=== PATIENT | male | born 1935 | race Two or more races ===

== ENCOUNTER 2019-07-14 13:00 | Outpatient (CLI) | payer MEDICARE, MEDICAID ==
[~2019-07-14 13:00] MED LIST: AMLODIPINE BESY10 MG ORAL; ASPIRIN EC81 MG ORAL; AVODART0.5 MG ORAL; ICAPS TABLET1 EACH PO; LEVOTHYROXINE25 MCG ORAL; LOSARTAN POTAS100 MG ORAL; MELOXICAM7.5 MG PO; MUCUS RELIEF400 MG PO; NEXIUM40 MG ORAL; TAMSULOSIN HCL0.4 MG ORAL; VITAMIN D1000 UNI1 ORAL
[2019-07-14 15:48] VITALS: BP 131/70
--- NOTE | 2019-07-14 19:15 | Consultation ---
DATE OF CONSULTATION: 07/14/2019 CONSULTING PHYSICIAN: Gadiel Ponce M.D. CHIEF COMPLAINT: The patient was referral from Dr. Seng Mcclure for abnormal liver function tests, possible hepatitis B. HISTORY OF PRESENT ILLNESS: This is a very pleasant 84-year-old male, known to me from prior admissions. I did his colonoscopy over 5 years ago. He actually was due for colonoscopy, but the referral at this time is for hepatitis B. His last colonoscopy was in 2013. He poor prep, diverticulosis, and internal hemorrhoids. Apparently, he had a blood work done and was positive for hepatitis B. Unfortunately, I do not have that blood work in front of me and he also had abnormal liver function tests and referred for GI evaluation. PAST MEDICAL HISTORY: 1. BPH. 2. Hypertension. 3. CVA. 4. Hypothyroidism. 5. Hypercholesterolemia. 6. Diverticulosis. ALLERGIES: No known drug allergies. MEDICATIONS: Please see medication reconciliation list. SOCIAL HISTORY: Lives at home. No recent history of tobacco, alcohol, or drug abuse. FAMILY HISTORY: Noncontributory. REVIEW OF SYSTEMS: A 10-point review of systems was performed and pertinent positives in HPI. PHYSICAL EXAMINATION: GENERAL: Well-developed male. VITAL SIGNS: Temperature is 98.6, blood pressure is 131/70, pulse is 80, respirations 20. HEENT: Normocephalic and atraumatic. Sclerae anicteric. NECK: Supple. No evidence of obvious lymphadenopathy. CARDIOVASCULAR: Regular rhythm. Plus S1 and S2. No obvious murmur. LUNGS: Decreased breath sounds bilaterally based on the supine exam. ABDOMEN: Soft and nontender. No rebound. No guarding. No peritoneal sign. EXTREMITIES: No cyanosis. No clubbing. No edema IMAGING STUDY: Abdominal ultrasound was basically multiple cecal appearing right renal cyst. No evidence of any fatty liver or cirrhosis. No common bile duct dilatation. LABORATORY DATA: Liver function was mildly elevated, AST in 100 ranges. ASSESSMENT AND PLAN: This is an 84-year-old male with abnormal liver function tests. Plan will be to order hepatitis B panel because we do not have the laboratory results at this time. We will order hepatitis B surface antigen and antibody, E antigen and E antibody, hepatitis B DNA. Repeat LFTs. The patient was told to come back to the office next week for follow up. We are going to hold off doing repeating colonoscopy at this time and the family agreed. I want to thank Dr. Seng Mcclure for this kind referral. Gadiel Fernandez Ponce DR: TREMAINE JOB#: [id number] CC: Seng Mcclure MD
[2019-07-15] MEDS ORDERED: MIRTAZAPINE15 M3 ORAL (08:53)
[2019-07-15] MEDS ORDERED: ATORVASTATIN CA20 MG ORAL (08:53)
[2019-07-15] MEDS ORDERED: FLUTICASONE PRO16 G1 NASAL (08:53)
[2019-07-15] MEDS ORDERED: PLAVIX75 MG ORAL (08:53)
== END 2019-07-14 15:00 | disposition home or self-care (01) ==
LOC: PAN 13:00
DX: R94.5 Abnormal results of liver function studies (principal); K57.90 Diverticulosis of intestine, part unspecified, without perforation or abscess without bleeding; E78.00 Pure hypercholesterolemia, unspecified; E03.9 Hypothyroidism, unspecified; I10 Essential (primary) hypertension; Z86.73 Personal history of transient ischemic attack (TIA), and cerebral infarction without residual deficits; Z86.19 Personal history of other infectious and parasitic diseases
CPT/HCPCS: 99212

== ENCOUNTER 2019-07-21 13:30 | Outpatient (CLI) | payer MEDICARE, MEDICAID ==
[~2019-07-21 13:30] MED LIST changes: +ATORVASTATIN CA20 MG ORAL; +FLUTICASONE PRO16 G1 NASAL; +MIRTAZAPINE15 M3 ORAL; +PLAVIX75 MG ORAL
[2019-07-21 14:00] VITALS: BP 134/79
--- NOTE | 2019-07-21 14:18 | General Progress Note ---
Assessment/Plan Assessment/Plan: 1. BPH. 2. Hypertension. 3. CVA. 4. Hypothyroidism. 5. Hypercholesterolemia. 6. Diverticulosis 7, hep B start Entecavir RTC one month Subjective ROS Limited/Unobtainable: Yes Allergies: Coded Allergies: No Known Allergies (Unverified , 04/22/14) Objective General Appearance: alert EENT: normal ENT inspection Neck: supple Cardiovascular: normal rate Respiratory/Chest: decreased breath sounds Abdomen: normal bowel sounds, non tender, soft Extremities: non-tender Gadiel Ponce MD Jul 21, 2019 14:18
== END 2019-07-21 15:30 | disposition home or self-care (01) ==
LOC: PAN 13:30
DX: N40.0 Benign prostatic hyperplasia without lower urinary tract symptoms (principal); I10 Essential (primary) hypertension; E03.9 Hypothyroidism, unspecified; Z86.73 Personal history of transient ischemic attack (TIA), and cerebral infarction without residual deficits; E78.00 Pure hypercholesterolemia, unspecified; K57.90 Diverticulosis of intestine, part unspecified, without perforation or abscess without bleeding; B19.10 Unspecified viral hepatitis B without hepatic coma

== ENCOUNTER 2019-10-08 12:59 | Outpatient (CLI) | payer MEDICARE, MEDICAID ==
[~2019-10-08 12:59] MED LIST changes: +BARACLUDE0.5 MG ORAL
--- NOTE | 2019-10-08 14:04 | General Progress Note ---
Assessment/Plan Assessment/Plan: Assessment/Plan Problem List: (1) Diverticulosis ICD Codes: K57.90 - Diverticulosis SNOMED: 882488808 (2) Atrophy, gastritis ICD Codes: K29.40 - Atrophy, gastritis SNOMED: 09327400 (3) Hemorrhoids ICD Codes: K64.9 - Hemorrhoids SNOMED: 57814302 (4) Hypercholesteremia ICD Codes: E78.0 - Hypercholesteremia SNOMED: 58857688 (5) HTN (hypertension) ICD Codes: I10 - HTN (hypertension) SNOMED: 53375118 (6) BPH (benign prostatic hyperplasia) ICD Codes: N40.0 - BPH (benign prostatic hyperplasia) SNOMED: 442826233 Assessment/Plan: Assessment/Plan Assessment/Plan: 1. BPH. 2. Hypertension. 3. CVA. 4. Hypothyroidism. 5. Hypercholesterolemia. 6. Diverticulosis 7, hep B Entecavir labs for today RTC one month Subjective ROS Limited/Unobtainable: Yes Allergies: Coded Allergies: No Known Allergies (Unverified , 04/22/14) Objective General Appearance: alert EENT: PERRL/EOMI Neck: normal alignment Cardiovascular: normal rate Respiratory/Chest: lungs clear Abdomen: normal bowel sounds, non tender, soft Extremities: non-tender Gadiel Ponce MD Oct 08, 2019 14:04
== END 2019-10-08 14:59 | disposition home or self-care (01) ==
LOC: PAN 12:59
DX: K57.90 Diverticulosis of intestine, part unspecified, without perforation or abscess without bleeding (principal); K29.40 Chronic atrophic gastritis without bleeding; K64.9 Unspecified hemorrhoids; E78.00 Pure hypercholesterolemia, unspecified; I10 Essential (primary) hypertension; N40.0 Benign prostatic hyperplasia without lower urinary tract symptoms; Z86.73 Personal history of transient ischemic attack (TIA), and cerebral infarction without residual deficits; E03.9 Hypothyroidism, unspecified
CPT/HCPCS: 99212